=== PATIENT | female | born 1990 | race Two or more races ===

== ENCOUNTER 2017-09-29 13:25 | Emergency (ER) | payer SELFPAY ==
[~2017-09-29] VITALS: Ht 170.2 cm; Wt 99.8 kg
[2017-09-29 14:00] VITALS: BP 106/70
== END 2017-09-29 17:04 | disposition home or self-care (01) ==
LOC: ER 13:25
DX: O20.0 Threatened abortion (principal); Z3A.01 Less than 8 weeks gestation of pregnancy
CPT/HCPCS: 36415; 76801; 84702

== ENCOUNTER 2017-11-19 18:29 | Emergency (ER) | payer SELFPAY ==
[~2017-11-19] VITALS: Ht 170.2 cm; Wt 99.8 kg
[2017-11-19 19:49] LABS: Basophils # (auto) 0 uL; Basophils % (auto) 0.3 % (0.0-2.0); Eosinophils # (auto) 0.2 uL; Hematocrit 37.2 % (36.0-46.0); Hemoglobin 12.3 g/dL (12.2-16.2); Lymphocytes # (auto) 2.8 uL; Lymphocytes % (auto) 24.3 % (10.0-50.0); Mean Corpuscular Hemoglobin 27.2 pg (28.0-32.0); Mean Corpuscular Hgb Conc. 33.2 g/dL (32.0-36.0); Monocytes # (auto) 0.7 uL; Monocytes % (auto) 6.5 % (0.0-12.0); Neutrophils # (auto) 7.7 uL; Neutrophils % (auto) 66.9 % (37.0-80.0); Nucleated Red Blood Cells % 0.1 %; Platelet Count (auto) 317 10^3/uL (140-450); Red Blood Cells 4.54 10^6/uL (4.0-5.20); Red Cell Distribution Width 14.7 % (11.8-14.3); White Blood Cell 11.5 10^3/uL (4.4-10.8)
[2017-11-19 20:09] LABS: Albumin 3.2 g/dL (3.4-5.0); BUN/Creatinine Ratio 15.3; Calcium 8.9 mg/dL (8.5-10.1); Potassium 3.7 mmol/L (3.5-5.1)
[2017-11-19 20:18] LABS: Bilirubin, Total 0.2 mg/dL (0.2-1.0)
[2017-11-20 03:00] VITALS: BP 97/57
== END 2017-11-20 03:43 | disposition home or self-care (01) ==
LOC: ER 18:29
DX: O20.0 Threatened abortion (principal); Z3A.14 14 weeks gestation of pregnancy
CPT/HCPCS: 36415; 76805; 80053; 84702; 85025